=== PATIENT | male | born 1955 | race Two or more races ===

== ENCOUNTER 2016-06-28 09:24 | Emergency (ER) | payer OTHER ==
[~2016-06-28] VITALS: Ht 172.7 cm; Wt 77.1 kg
[2016-06-28] MEDS ORDERED: ALBUTEROL FS 2.5 MG/3 ML VIAL.NEB NEB ONE ×2 (10:00)
[2016-06-28] MEDS ORDERED: IPRATROPIUM NEB FS 0.5 MG/2.5 ML AMPUL.NEB NEB ONE (10:00)
[2016-06-28] MEDS ORDERED: ALBUTEROL FS 2.5 MG/3 ML VIAL.NEB ONE (10:04)
[2016-06-28] MEDS ORDERED: IPRATROPIUM NEB FS 0.5 MG/2.5 ML AMPUL.NEB ONE (10:05)
[2016-06-28 12:02] VITALS: BP 115/82
== END 2016-06-28 12:03 | disposition home or self-care (01) ==
LOC: ER 09:25
DX: J45.901 Unspecified asthma with (acute) exacerbation (principal); J06.9 Acute upper respiratory infection, unspecified; Z88.0 Allergy status to penicillin; Z88.6 Allergy status to analgesic agent; F10.20 Alcohol dependence, uncomplicated
CPT/HCPCS: 71010; 94640; 99283; A4606; Z7610

== ENCOUNTER 2016-07-07 21:58 | Emergency (ER) | payer OTHER ==
[~2016-07-07] VITALS: Ht 182.9 cm; Wt 81.6 kg
[2016-07-07] MEDS ORDERED: ALBUTEROL FS 2.5 MG/0.5 ML VIAL.NEB NEB ONE (22:30)
[2016-07-07] MEDS ORDERED: ALBUTEROL FS 2.5 MG/0.5 ML VIAL.NEB ONE (22:45)
[2016-07-08 00:45] VITALS: BP 106/64
== END 2016-07-08 00:45 | disposition home or self-care (01) ==
LOC: ER 22:00
DX: J45.909 Unspecified asthma, uncomplicated (principal); Z88.0 Allergy status to penicillin
CPT/HCPCS: 71010-TC; A4606; Z7610

== ENCOUNTER 2017-05-27 16:55 | Emergency (ER) | payer OTHER ==
[~2017-05-27] VITALS: Ht 180.3 cm; Wt 83.9 kg
[2017-05-27 17:08] VITALS: BP 124/77
[2017-05-27] MEDS ORDERED: KETOROLAC TROMETHAMINE INJ 30 MG/ML VIAL ONE (17:20)
[2017-05-27] MEDS: KETOROLAC TROMETHAMINE INJ 60 MG/2 ML VIAL IM ONE (17:23)
== END 2017-05-27 17:34 | disposition home or self-care (01) ==
LOC: ER 16:58
DX: S39.012A Strain of muscle, fascia and tendon of lower back, initial encounter (principal); J45.909 Unspecified asthma, uncomplicated; Z88.0 Allergy status to penicillin; Z88.6 Allergy status to analgesic agent; X50.0XXA Overexertion from strenuous movement or load, initial encounter; Y93.89 Activity, other specified; Y92.89 Other specified places as the place of occurrence of the external cause; Y99.0 Civilian activity done for income or pay
CPT/HCPCS: A4606; J1885; Z7610

== ENCOUNTER 2017-07-06 19:47 | Emergency (ER) | payer OTHER ==
[~2017-07-06] VITALS: Ht 185.4 cm; Wt 81.6 kg
--- NOTE | 2017-07-06 20:19 | NUR ---
DR ENGLISH AT BEDSIDE FOR EVAL.
[2017-07-06] MEDS ORDERED: predniSONE 20 MG TABLET PO ONE (20:30)
[2017-07-06] MEDS ORDERED: ALBUTEROL FS 2.5 MG/3 ML VIAL.NEB NEB ONE (20:30)
[2017-07-06] MEDS ORDERED: IPRATROPIUM NEB FS 0.5 MG/2.5 ML AMPUL.NEB NEB ONE (20:30)
--- NOTE | 2017-07-06 20:59 | NUR ---
RT AT BEDSIDE FOR BREATHING TREATMENT.
[2017-07-06] MEDS ORDERED: IPRATROPIUM NEB FS 0.5 MG/2.5 ML AMPUL.NEB ONE (21:00)
[2017-07-06] MEDS ORDERED: ALBUTEROL FS 2.5 MG/3 ML VIAL.NEB ONE (21:00)
[2017-07-06] MEDS ORDERED: predniSONE 20 MG TABLET ONE (21:10)
--- NOTE | 2017-07-06 22:24 | NUR ---
Patient discharged to home in stable condition. Written and verbal after care instructions given. Patient verbalizes understanding of instruction.
[2017-07-06 22:25] VITALS: BP 130/77
== END 2017-07-06 22:25 | disposition home or self-care (01) ==
LOC: ER 19:52
DX: J45.901 Unspecified asthma with (acute) exacerbation (principal); F10.10 Alcohol abuse, uncomplicated; K21.9 Gastro-esophageal reflux disease without esophagitis; Z88.0 Allergy status to penicillin; Z88.6 Allergy status to analgesic agent
CPT/HCPCS: 99285; A4606; J7512; Z7610

== ENCOUNTER 2017-07-11 20:18 | Emergency (ER) | payer OTHER ==
[~2017-07-11] VITALS: Ht 182.9 cm; Wt 81.6 kg
[2017-07-11 20:30] VITALS: BP 148/75
== END 2017-07-11 21:30 | disposition home or self-care (01) ==
LOC: ER 20:25
DX: J20.9 Acute bronchitis, unspecified (principal); J45.901 Unspecified asthma with (acute) exacerbation; K21.9 Gastro-esophageal reflux disease without esophagitis; Z98.890 Other specified postprocedural states; Z88.0 Allergy status to penicillin; Z88.6 Allergy status to analgesic agent
CPT/HCPCS: 99283; A4606; Z7610

== ENCOUNTER 2017-08-14 15:03 | Inpatient (IN) | payer OTHER ==
[~2017-08-14] VITALS: Ht 182.9 cm; Wt 84.8 kg
--- NOTE | 2017-08-14 15:10 | NUR ---
PT CAME IN FOR INTERMITTENT CHEST PAIN X YESTERDAY WITH NAUSEA. SEEN BY MD FOR EVAL. VSS. NAD NOTED. SAEFTY AND COMFORT MEASURES PROVIDED. WILL MONITOR.
[2017-08-14] MEDS ORDERED: ONDANSETRON HCL/PF 4 MG/2 ML VIAL ONE (15:27)
[2017-08-14] MEDS ORDERED: MORPHINE SULFATE INJ 4 MG/ML DISP.SYRIN ONE (15:28)
[2017-08-14] MEDS ORDERED: ASPIRIN EC 81 MG TABLET.DR PO ONE (15:28)
[2017-08-14] MEDS ORDERED: MORPHINE SULFATE INJ 2 MG/ML DISP.SYRIN IV ONE (15:30)
[2017-08-14] MEDS ORDERED: ASPIRIN 81 MG TAB.CHEW PO ONE (15:30)
[2017-08-14] MEDS ORDERED: ONDANSETRON HCL/PF 4 MG/2 ML VIAL IVP ONE (15:30)
--- NOTE | 2017-08-14 15:34 | NUR ---
IV ACCESS STARTED. BLOOD DRAWN FOR LABS. PT MEDICATED ORDERED.
[2017-08-14 15:40] LABS: BASOPHILS # (AUTO) 0.1 /CMM (0.0-0.2); BASOPHILS % (AUTO) 0.9 % (0.0-2.0); EOSINOPHILS # (AUTO) 0.2 /CMM (0.0-0.7); EOSINOPHILS % (AUTO) 2.5 % (0.0-6.0); HEMATOCRIT 43 % (39-51); HEMOGLOBIN 13.8 g/dL (13.5-17.5); LYMPHOCYTES # (AUTO) 1.5 /CMM (0.8-4.8); LYMPHOCYTES % (AUTO) 21.3 % (20.0-44.0); MEAN CORPUSCULAR HEMOGLOBIN 27 PG (26.0-33.0); MEAN CORPUSCULAR HGB CONC 33 g/dl (31.0-36.0); MEAN CORPUSCULAR VOLUME 83 fL (80-96); MONOCYTES # (AUTO) 0.5 /CMM (0.1-1.30); MONOCYTES % (AUTO) 6.9 % (2.0-12.0); NEUTROPHILS # (AUTO) 4.9 /CMM (1.8-8.9); NEUTROPHILS % (AUTO) 68.4 % (43.0-81.0); PLATELET COUNT (AUTO) 198 /CMM (150-450); WHITE BLOOD COUNT (AUTO) 7.2 K/uL (4.3-11.0)
[2017-08-14 15:52] LABS: CALCIUM, SERUM 8.7 mg/dL (8.5-10.1); CARBON DIOXIDE 27 mmol/L (21-32); CHLORIDE 106 mmol/L (98-107); CREATININE 0.9 mg/dL (0.6-1.3); GLUCOSE 99 mg/dL (74-106); POTASSIUM 4.3 mmol/L (3.5-5.1); SODIUM SERUM 140 mmol/L (136-145); UREA NITROGEN, BLOOD 12 mg/dL (7-18)
[2017-08-14 15:54] LABS: INR 0.96 (0.85-1.15)
[2017-08-14 15:58] LABS: ALANINE AMINOTRANSFERASE 40 U/L (12-78); ALBUMIN 3.9 g/dL (3.4-5.0); ALKALINE PHOSPHATASE 80 U/L (46-116); ASPARTATE AMINOTRANSFERASE 27 U/L (15-37); BILIRUBIN,DIRECT 0.1 mg/dL (0.0-0.2); BILIRUBIN,TOTAL 0.4 mg/dL (0.2-1.0); TOTAL PROTEIN, SERUM 7.5 g/dL (6.4-8.2); TROPONIN I < 0.017 ng/mL (0.00-0.056)
--- NOTE | 2017-08-14 16:50 | NUR ---
CALLED [employer] PRINCIPAL EMBEDDED SOFTWARE ENGINEER WAS PAGED.
[2017-08-14] MEDS ORDERED: SIMV40TA5 PO (16:58)
--- NOTE | 2017-08-14 18:10 | NUR ---
REPORT GIVEN TO HAROLDO VILLALBA FOR TELE 323.
--- NOTE | 2017-08-14 19:20 | NUR ---
TELE/RN NOTES RECEIVED PT. LYING DOWN IN BED. AWAKE, ALERT AND ORIENTED X4. BREATHING EVEN AND UNLABORED ON ROOM AIR. NO SOB, RESPIRATORY DISTRESS OR COMPLAINTS OF PAIN NOTED AT THIS TIME. NO COMPLAINTS OF CHEST PAIN NOTED AT THIS TIME. PT. WITH EXTERNAL CIVILIAN JAIL OFFICER PRESENT AND INTACT. CURRENT RHYTHM = SINUS RHYTHM HR 60. PT. WITH LEFT AC 18 GAUGE IV SALINE LOCK PRESENT, PATENT AND INTACT. PT. WITH FAMILY MEMBERS PRESENT AT BEDSIDE. AWAITING ADMITTING ORDERS. BED LOCKED AND IN LOWEST POSITION, SIDE RAILS UP X2, CALL LIGHT WITHIN REACH, WILL CONTINUE TO MONITOR.
[2017-08-14 20:00] VITALS: BP 127/71
[2017-08-14] MEDS ORDERED: NITROGLYCERIN 0.4 MG/TAB BOTTLE SL PRN (20:30)
[2017-08-14] MEDS ORDERED: ZOLPIDEM TARTRATE 5 MG TABLET PO PRN (20:30)
[2017-08-14] MEDS ORDERED: MORPHINE SULFATE INJ 2 MG/ML DISP.SYRIN IV PRN (20:30)
[2017-08-14] MEDS ORDERED: ONDANSETRON HCL/PF 4 MG/2 ML VIAL IVP PRN (20:30)
[2017-08-14] MEDS ORDERED: MOME13HF INH (20:44)
[2017-08-14] MEDS ORDERED: ALBU18HF2 INH (20:44)
[2017-08-14] MEDS: PANTOPRAZOLE 40 MG TABLET.DR PO SCH (21:28)
[2017-08-14] MEDS: SIMVASTATIN 40 MG TABLET PO SCH (21:28)
[2017-08-14] MEDS: SUCRALFATE 1 G/10 ML UDC PO SCH (23:53)
[2017-08-15] VITALS: BP 118/62
[2017-08-15 04:00] VITALS: BP 119/71
[2017-08-15] MEDS: SUCRALFATE 1 G/10 ML UDC PO SCH ×3 (06:33→17:19)
--- NOTE | 2017-08-15 06:40 | NUR ---
TELE/RN NOTES PT. IS LYING IN BED RESTING. BREATHING EVEN AND UNLABORED ON ROOM AIR. NO SOB, RESPIRATORY DISTRESS OR COMPLAINTS OF PAIN NOTED AT THIS TIME. NO COMPLAINTS OF CHEST PAIN NOTED AT THIS TIME AND THROUGHOUT SHIFT. PT. WITH EXTERNAL KNIFE CHANGER PRESENT AND INTACT. PT. WITH LEFT AC 18 GAUGE IV SALINE LOCK PRESENT, PATENT AND INTACT. PT. HAS BEEN NPO SINCE MIDNIGHT PENDING CARDIO CONSULT. ALL PT. NEEDS MET. BED LOCKED AND IN LOWEST POSITION, SIDE RAILS UP X2, CALL LIGHT WITHIN REACH, WILL ENDORSE TO DAYSHIFT NURSE FOR CONTINUITY OF CARE.
--- NOTE | 2017-08-15 07:30 | NUR ---
RN Initial Notes Patient alert and oriented x4, chadian speaking, understands a little stateless. Patient kept NPO since midnight. Patient seen by die maker bench stamping Dr. Joyner and received new orders for a lexiscan stress test. Patient denies chest pain at this time. Needs attended and met, call light within reach, will continue to monitor.
[2017-08-15 07:53] LABS: CHOLESTEROL 127 mg/dL (<200); HDL CHOLESTEROL 38 mg/dL (40-60); LDL 78 mg/dL (0-99); TRIGLYCERIDES 100 mg/dL (30-150)
[2017-08-15 08:00] VITALS: BP 97/62
[2017-08-15] MEDS: ASPIRIN EC 81 MG TABLET.DR PO SCH (08:35)
[2017-08-15] MEDS: PANTOPRAZOLE 40 MG TABLET.DR PO SCH (08:36)
[2017-08-15 16:00] VITALS: BP 96/68
--- NOTE | 2017-08-15 19:01 | NUR ---
RN Closing Notes Patient A/Ox4, denies further chest pain throughout the shift, breathing even and unlabored, PIV on LAC patent and flushes well. Patient completed Lexiscan nuclear stress test and Echocardiogram. Dr. Joyner aware of results. Patient assisted with adls, but mostly independent. Family at bedside, call light within reach, will endorse to night nurse for davidson.
--- NOTE | 2017-08-15 19:25 | NUR ---
MS RN NOTES ON BED A/O X4,BREATHING REGULAR,DENIES CHEST PAIN.SALINE LOCK LEFT AC INTACT AND PATENT.VISITOR AT BEDSIDE.CALL LIGHT IN REACH,NEEDS ANTICIPATED.
[2017-08-15 19:58] VITALS: BP 96/57
[2017-08-15 20:11] VITALS: BP 96/57
[2017-08-15] MEDS: SIMVASTATIN 40 MG TABLET PO SCH (21:09)
--- NOTE | 2017-08-15 22:00 | NUR ---
MS RN NOTES HAYLEE TERAN CALLED SAYING ALL TEST WAS NEGATIVE,ASK IF PATIENT WANTS TO GO HOME,PATIENT PREFERS TO GO HOME IN THE MORNING.
[2017-08-16] MEDS: SUCRALFATE 1 G/10 ML UDC PO SCH ×3 (00:24→11:53)
[2017-08-16 02:20] LABS: APPEARANCE,URINE TURBID (CLEAR); BILIRUBIN,URINE NEGATIVE (NEGATIVE); BLOOD, URINE NEGATIVE Ery/uL (NEGATIVE); COLOR,URINE YELLOW (YELLOW); KETONES,URINE TRACE (NEGATIVE); LEUKOCYTE ESTERASE ,URINE NEGATIVE (NEGATIVE); NITRITE, URINE NEGATIVE (NEGATIVE); PH,URINE 5.5 (5.0-8.0); PROTEIN,URINE NEGATIVE (NEGATIVE); UGLUCOSE NEGATIVE (NEGATIVE); UROBILINOGEN,URINE 0.2 EU/dL (0.2)
[2017-08-16 02:28] LABS: BACTERIA,URINE Few /HPF (None Seen); RBC,URINE 0-2 /HPF (0-2); SQUAMOUS EPITHELIAL CELL,UR None Seen /HPF (None Seen); URINE AMORPHOUS URATE Many /HPF (None Seen); WBC,URINE NONE SEEN /HPF (0-3)
--- NOTE | 2017-08-16 06:12 | NUR ---
MS RN NOTES NO SIGNIFICANT CHANGE IN STATUS.DENIES CHEST PAIN.SLEPT WELL.POSSIBLE D/C TO HOME TODAY.CLAIMED HE CAN DRIVE HIS OWN CAR GOING BACK HOME.WILL ENDORSE TO DAY NURSE FOR SAMANTHA.
[2017-08-16 08:00] VITALS: BP 98/50
[2017-08-16] MEDS ORDERED: REGADENOSON 0.4 MG/5 ML DISP.SYRIN IVP ONE (08:00)
[2017-08-16] MEDS: PANTOPRAZOLE 40 MG TABLET.DR PO SCH (08:07)
[2017-08-16] MEDS: ASPIRIN EC 81 MG TABLET.DR PO SCH (08:07)
[2017-08-16] MEDS ORDERED: PANT40TA2 PO (13:45)
[2017-08-16] MEDS ORDERED: ASPI-1152 PO (13:45)
--- NOTE | 2017-08-16 15:05 | NUR ---
M/S RN - Discharge Pt feeling better, denies chest pain, not in any form of distress, discharged to home in stable condition. Reviewed discharge instructions with patient and he verbalized full understanding of all teachings including medication management and f/u appt with his PMD in 1 week and avoid high acidity foods. Written prescription given to pt and work note. All belongings with pt and he denies any missing items. Heplock removed on the LAC with catheter tip intact, no redness and no swelling noted at the site. Skin is intact, pt refused photo to be taken. Discharge papers signed and copy was given per protocol. Accompanied to the lobby and transported by private car by .
== END 2017-08-16 15:00 | disposition home or self-care (01) | DRG 243 ==
LOC: ER 15:07 → TELE 17:38 → MED 08-15 09:13
PROVIDERS: ADMIT Nurse Practitioner Acute Care; ATTEND Nurse Practitioner Acute Care
DX: K21.9 Gastro-esophageal reflux disease without esophagitis (principal); E78.5 Hyperlipidemia, unspecified; J45.909 Unspecified asthma, uncomplicated; K40.90 Unilateral inguinal hernia, without obstruction or gangrene, not specified as recurrent
CPT/HCPCS: 36415; 71045-TC; 80048-TC; 80061-TC; 80076-TC; 80305; 81000-TC; 84484-TC; 85025-TC; 85730-TC; 87081-TC; 93307-TC; A4606; A9502; J2785; Z7610

== ENCOUNTER 2018-08-19 18:29 | Emergency (ER) | payer OTHER ==
[~2018-08-19] VITALS: Ht 185.4 cm; Wt 81.6 kg
[2018-08-19 18:29] VITALS: BP 146/80
[~2018-08-19 18:29] MED LIST: ALBU18HF2 INH; ASPI-1152 PO; MOME13HF INH; PANT40TA2 PO; SIMV40TA5 PO
[2018-08-19] MEDS ORDERED: ACETAMINOPHEN ES 500 MG TABLET PO ONE (19:30)
[2018-08-19] MEDS ORDERED: ACETAMINOPHEN ES 500 MG TABLET ONE (19:33)
== END 2018-08-19 21:25 | disposition home or self-care (01) ==
LOC: ER 18:37
DX: J40 Bronchitis, not specified as acute or chronic (principal); K21.9 Gastro-esophageal reflux disease without esophagitis; E78.5 Hyperlipidemia, unspecified; Z98.890 Other specified postprocedural states; Z88.0 Allergy status to penicillin; Z88.6 Allergy status to analgesic agent; Z79.82 Long term (current) use of aspirin; Z79.899 Other long term (current) drug therapy
CPT/HCPCS: 71045; 99283; A4606

== ENCOUNTER 2019-08-09 13:59 | Emergency (ER) | payer OTHER ==
[~2019-08-09] VITALS: Ht 182.9 cm; Wt 84.8 kg
[~2019-08-09 13:59] MED LIST changes: +SIMV-49 PO; -SIMV40TA5 PO
[2019-08-09 15:30] VITALS: BP 114/70
[2019-08-09] MEDS ORDERED: KETOROLAC TROMETHAMINE INJ 30 MG/ML VIAL ONE (15:59)
[2019-08-09] MEDS ORDERED: METHOCARBAMOL (750MG) 750 MG TABLET PO SCH (16:00)
[2019-08-09] MEDS ORDERED: KETOROLAC TROMETHAMINE INJ 60 MG/2 ML VIAL IM ONE (16:00)
[2019-08-09] MEDS ORDERED: METHOCARBAMOL (500MG) 500 MG TABLET ONE (16:00)
== END 2019-08-09 17:14 | disposition home or self-care (01) ==
LOC: ER 14:06
DX: M54.5 Low back pain (principal); J45.909 Unspecified asthma, uncomplicated; K21.9 Gastro-esophageal reflux disease without esophagitis; F10.10 Alcohol abuse, uncomplicated; Y90.9 Presence of alcohol in blood, level not specified; Z98.890 Other specified postprocedural states; Z88.0 Allergy status to penicillin; Z88.6 Allergy status to analgesic agent; Z79.82 Long term (current) use of aspirin; Z79.899 Other long term (current) drug therapy
CPT/HCPCS: 96372; 99283; J1885

== ENCOUNTER 2020-09-09 20:18 | Inpatient (IN) | payer BC, MEDICAID ==
[~2020-09-09] VITALS: Ht 188 cm; Wt 68.5 kg
[~2020-09-09 20:18] MED LIST changes: -ASPI-1152 PO; +ASPI-1420 PO
--- NOTE | 2020-09-09 20:18 | NUR ---
PT BIBSELF C/O CHEST AND LEFT SHOULDER PAIN S/P FALL LAST SUNDAY. PT AAOX4 BREATHING EVENLY AND UNLABORED. PT DENIES KO. PT SKIN WARM, DRY, AND INTACT. PT ATTACHED TO RETAIL SHIFT MANAGER AND POX. EMT AT BEDSIDE FOR EKG. PT GIVEN BLANKET AND CALL LIGHT WITHIN REACH. WILL CONTINUE TO MONITOR.
[2020-09-09] MEDS ORDERED: KETOROLAC TROMETHAMINE 15 MG/ML VIAL ONE (20:54)
[2020-09-09] MEDS ORDERED: KETOROLAC TROMETHAMINE INJ 30 MG/ML VIAL IV ONE (21:00)
[2020-09-09 21:05] LABS: BASOPHILS % (AUTO) 0.7 % (0.0-2.0); EOSINOPHILS % (AUTO) 3.3 % (0.0-6.0); HEMATOCRIT 42 % (39-51); HEMOGLOBIN 13.9 g/dL (13.5-17.5); LYMPHOCYTES # (AUTO) 1.8 /CMM (0.8-4.8); LYMPHOCYTES % (AUTO) 25.2 % (20.0-44.0); MEAN CORPUSCULAR HGB CONC 33 g/dl (31.0-36.0); MEAN CORPUSCULAR VOLUME 83 fL (80-96); MONOCYTES # (AUTO) 0.5 /CMM (0.1-1.30); MONOCYTES % (AUTO) 7.5 % (2.0-12.0); NEUTROPHILS # (AUTO) 4.4 /CMM (1.8-8.9); NEUTROPHILS % (AUTO) 63.3 % (43.0-81.0); PLATELET COUNT (AUTO) 171 /CMM (150-450); RED BLOOD CELL COUNT(AUTO) 5.08 MIL/uL (4.5-6.0)
--- NOTE | 2020-09-09 21:05 | NUR ---
XRAY AT BEDSIDE
[2020-09-09 21:12] LABS: CARBON DIOXIDE 27 mmol/L (21-32); CHLORIDE 106 mmol/L (98-107); CREATININE 0.9 mg/dL (0.6-1.3); GLUCOSE 101 mg/dL (74-106); POTASSIUM 3.9 mmol/L (3.5-5.1); SODIUM SERUM 140 mmol/L (136-145); UREA NITROGEN, BLOOD 12 mg/dL (7-18)
[2020-09-09 21:18] LABS: ALANINE AMINOTRANSFERASE 31 U/L (12-78); ALKALINE PHOSPHATASE 81 U/L (46-116); ASPARTATE AMINOTRANSFERASE 17 U/L (15-37); BILIRUBIN,DIRECT 0.1 mg/dL (0.0-0.2); BILIRUBIN,TOTAL 0.4 mg/dL (0.2-1.0); TOTAL PROTEIN, SERUM 7.6 g/dL (6.4-8.2)
[2020-09-09] MEDS ORDERED: FLUT1BLS IH (22:40)
--- NOTE | 2020-09-09 22:45 | NUR ---
DAUGHTER, BRISEYDA [phone]
[2020-09-09] MEDS ORDERED: MORPHINE SULFATE INJ 2 MG/ML DISP.SYRIN IV PRN (23:00)
[2020-09-09] MEDS ORDERED: HYDROCODONE/APAP 5/325MG TABLET PO PRN (23:00)
[2020-09-09] MEDS ORDERED: ONDANSETRON HCL/PF 4 MG/2 ML VIAL IVP PRN (23:00)
[2020-09-09] MEDS ORDERED: IBUPROFEN 600 MG TABLET PO PRN (23:00)
[2020-09-09] MEDS ORDERED: ACETAMINOPHEN 325 MG TABLET PO PRN (23:00)
[2020-09-09] MEDS ORDERED: TEMAZEPAM 15 MG CAPSULE PO PRN (23:00)
[2020-09-09] MEDS ORDERED: Z GUARD REMEDY 2 OZ OINT TP PRN (23:00)
[2020-09-09] MEDS ORDERED: MAGNESIUM HYDROXIDE 30 ML UDC PO PRN (23:00)
[2020-09-09] MEDS ORDERED: MAG HYDROX/AL HYDROX/SIMETH 30 ML UDC PO PRN (23:00)
--- NOTE | 2020-09-09 23:26 | NUR ---
Call from lab. Rapid covid negative.
--- NOTE | 2020-09-09 23:40 | NUR ---
ATTEMPTED TO GIVE REPORT. RN WILL CALL BACK
--- NOTE | 2020-09-09 23:48 | NUR ---
GAVE REPORT TO ORLY ANGELO FOR SAMANTHA
[2020-09-10] VITALS: BP 139/77
--- NOTE | 2020-09-10 | NUR ---
TELE 1 ADVANCE AGENT NOTES RECEIVED ADMIT FROM ER PER JUAREZ THIS 64 YO MALE,,UNDERSTAND AND SPEAK MALTESE,ALERT,ORIENTED X4,AMBULATORY WITH STEADY GAIT,NO SKIN ISSUES.SALINE LOC RIGHT AC INTACT AND PATENT.CHIEF COM[PLAINTS OF CHEST AND SHOULDER PAIN SINCE SUNDAY.DENIES FALLING ON THE FLOOR.VITAL SIGNS WITH IN NORMAL LIMITS,O2 SAT 100% ON ROOM AIR.WITH KNOW HISTORY OF ASTHMA SINCE CHILDHOOD.TAKING ALBUTEROL INHALATION DAY AND NIGHT.NO SOB UPON ARRIVAL ON THE UNIT,CHEST PAIN DULL AND MILD 2/10 ON PAIN SCALE.ORIENTED TO ROOM SET UP.BED ON LOWEST POSITION AND LOCKED.FEELING HUNGRY,SANDWICH WITH CRANBERRY JUICE PROVIDED PER PATIENT REQUEST.CALL LIGHT IN REACH,NEEDS ANTICIPATED.
--- NOTE | 2020-09-10 00:30 | NUR ---
TELE1 RN NOTES SR-64 ON TELE MONITOR
[2020-09-10 04:00] VITALS: BP 102/65
--- NOTE | 2020-09-10 06:27 | NUR ---
MEDICAL SUPPLY TECHNICIAN NOTES CHEST PAIN IMPROVED,LABS TODAY AND ECHO ORDERED.NO DISTRESS.VITAL SIGNS STABLE.
[2020-09-10 07:00] LABS: BASOPHILS % (AUTO) 0.7 % (0.0-2.0); EOSINOPHILS % (AUTO) 3.7 % (0.0-6.0); HEMATOCRIT 41 % (39-51); HEMOGLOBIN 13.6 g/dL (13.5-17.5); LYMPHOCYTES # (AUTO) 1.5 /CMM (0.8-4.8); LYMPHOCYTES % (AUTO) 26.7 % (20.0-44.0); MEAN CORPUSCULAR HGB CONC 33 g/dl (31.0-36.0); MEAN CORPUSCULAR VOLUME 83 fL (80-96); MONOCYTES # (AUTO) 0.5 /CMM (0.1-1.30); MONOCYTES % (AUTO) 8.4 % (2.0-12.0); NEUTROPHILS # (AUTO) 3.4 /CMM (1.8-8.9); NEUTROPHILS % (AUTO) 60.5 % (43.0-81.0); PLATELET COUNT (AUTO) 160 /CMM (150-450); RED BLOOD CELL COUNT(AUTO) 4.98 MIL/uL (4.5-6.0); WHITE BLOOD COUNT (AUTO) 5.7 K/uL (4.3-11.0)
[2020-09-10 07:22] LABS: CALCIUM, SERUM 8.7 mg/dL (8.5-10.1); CARBON DIOXIDE 26 mmol/L (21-32); CHLORIDE 108 mmol/L (98-107); CREATININE 0.8 mg/dL (0.6-1.3); GLUCOSE 96 mg/dL (74-106); MAGNESIUM 2.3 mg/dL (1.8-2.4); PHOSPHORUS 4.6 mg/dL (2.5-4.9); POTASSIUM 3.7 mmol/L (3.5-5.1); SODIUM SERUM 141 mmol/L (136-145); UREA NITROGEN, BLOOD 12 mg/dL (7-18)
[2020-09-10] MEDS ORDERED: PANTOPRAZOLE 40 MG TABLET.DR PO SCH (07:30)
--- NOTE | 2020-09-10 07:30 | NUR ---
Pocket Flap Creasing Machine Operator opening notes Patient is alert and oriented, breathing even and unlabored.No c/o sob or chest pain. 02 saturation of 985 on room air. Patient noted with right ac 20 gauze saline lock. Safety and fall precaution teaching done. Will continue to monitor. Call light with in reach.
[2020-09-10 07:47] LABS: CHOLESTEROL 182 mg/dL (<200); HDL CHOLESTEROL 37 mg/dL (40-60); LDL 127 mg/dL (0-99); THYROID STIMULATING HORMONE 2.485 uIU/mL (0.358-3.74); TRIGLYCERIDES 96 mg/dL (30-150)
[2020-09-10 08:00] VITALS: BP 108/71
[2020-09-10] MEDS ORDERED: ENOXAPARIN SODIUM 40 MG/0.4 ML DISP.SYRIN SQ SCH (09:00)
[2020-09-10] MEDS ORDERED: ASPIRIN 81 MG TAB.CHEW PO SCH (09:00)
[2020-09-10] MEDS ORDERED: ALBUTEROL FS 2.5 MG/3 ML VIAL.NEB IH PRN (09:30)
[2020-09-10] MEDS ORDERED: FLUTICASONE/VILANTEROL 1 EACH BLST.W.DEV IH SCH (10:00)
[2020-09-10 12:00] VITALS: BP 100/65
[2020-09-10 15:15] VITALS: BP 106/78
--- NOTE | 2020-09-10 15:53 | NUR ---
Patient discharged to home in stable condition. No c/o chest pain. Breathing even and unlabored. No s/s of respiratory distress. Patient teaching done regardign safety and fal precuations. Educated regarding coid mrsa smoking, influenza and chest pain. Educated regarding follow up with pcp. No skin breakdown noted. Patient left the facility with .
[2020-09-10] MEDS ORDERED: SIMVASTATIN 40 MG TABLET PO SCH (22:00)
== END 2020-09-10 15:40 | disposition home or self-care (01) | DRG 203 ==
LOC: ER 20:20 → TELE1 23:36
PROVIDERS: ADMIT Nurse Practitioner Acute Care; ATTEND Internal Medicine
DX: M94.0 Chondrocostal junction syndrome [Tietze] (principal); Z20.822 Contact with and (suspected) exposure to COVID-19; K21.9 Gastro-esophageal reflux disease without esophagitis; J45.909 Unspecified asthma, uncomplicated; E78.5 Hyperlipidemia, unspecified; Z98.890 Other specified postprocedural states; Z88.6 Allergy status to analgesic agent; Z88.0 Allergy status to penicillin; Z79.51 Long term (current) use of inhaled steroids; Z79.899 Other long term (current) drug therapy; N40.0 Benign prostatic hyperplasia without lower urinary tract symptoms; I24.9 Acute ischemic heart disease, unspecified
CPT/HCPCS: 36415; 71100-TC; 80048-TC; 80061-TC; 80076-TC; 83735-TC; 84100-TC; 84443-TC; 84484-TC; 85025-TC; 87081-TC; 93307-TC; C9803; G0378; J1650; J1885

== ENCOUNTER 2021-08-22 13:57 | Emergency (ER) | payer MEDICAID ==
[~2021-08-22] VITALS: Ht 182.9 cm; Wt 81.6 kg
[~2021-08-22 13:57] MED LIST changes: -ASPI-1420 PO; +FLUT1BLS IH; -MOME13HF INH; -PANT40TA2 PO; -SIMV-49 PO
[2021-08-22 14:58] LABS: BASOPHILS % (AUTO) 0.5 % (0.0-2.0); EOSINOPHILS % (AUTO) 3.2 % (0.0-6.0); HEMATOCRIT 40 % (39-51); HEMOGLOBIN 13.6 g/dL (13.5-17.5); LYMPHOCYTES # (AUTO) 1.4 K/uL (0.8-4.8); LYMPHOCYTES % (AUTO) 19.3 % (20.0-44.0); MEAN CORPUSCULAR HGB CONC 34 g/dl (31.0-36.0); MEAN CORPUSCULAR VOLUME 83 fL (80-96); MONOCYTES # (AUTO) 0.6 K/uL (0.1-1.30); MONOCYTES % (AUTO) 7.4 % (2.0-12.0); NEUTROPHILS # (AUTO) 5.2 K/uL (1.8-8.9); NEUTROPHILS % (AUTO) 69.6 % (43.0-81.0); PLATELET COUNT (AUTO) 171 K/uL (150-450); RED BLOOD CELL COUNT(AUTO) 4.86 MIL/uL (4.5-6.0); WHITE BLOOD COUNT (AUTO) 7.5 K/uL (4.3-11.0)
[2021-08-22 15:08] LABS: CALCIUM, SERUM 8.9 mg/dL (8.5-10.1); CREATININE 0.9 mg/dL (0.6-1.3); POTASSIUM 4.6 mmol/L (3.5-5.1)
[2021-08-22 15:15] LABS: ALBUMIN 3.8 g/dL (3.4-5.0); BILIRUBIN,TOTAL 0.4 mg/dL (0.2-1.0); TOTAL PROTEIN, SERUM 7.2 g/dL (6.4-8.2)
[2021-08-22 17:14] VITALS: BP 118/72
== END 2021-08-22 17:14 | disposition home or self-care (01) ==
LOC: ER 14:00
DX: R60.0 Localized edema (principal); J45.909 Unspecified asthma, uncomplicated; K21.9 Gastro-esophageal reflux disease without esophagitis; K40.20 Bilateral inguinal hernia, without obstruction or gangrene, not specified as recurrent; Z88.0 Allergy status to penicillin; Z88.6 Allergy status to analgesic agent; Z79.51 Long term (current) use of inhaled steroids
CPT/HCPCS: 36415; 71045-TC; 80053-TC; 85025-TC; 93970-TC

== ENCOUNTER 2022-10-08 21:09 | Inpatient (IN) | payer BC, OTHER ==
[~2022-10-08] VITALS: Ht 175.3 cm; Wt 83.5 kg
--- NOTE | 2022-10-08 21:16 | NUR ---
CODE STROKE CALLED.
--- NOTE | 2022-10-08 21:17 | NUR ---
PT TO CT VIA JUAREZ
[2022-10-08] MEDS ORDERED: IV NS 0.9% 250 ML IV ONE (21:19)
[2022-10-08] MEDS ORDERED: IOHEXOL-350 100 ML VIAL IV ONE (21:19)
--- NOTE | 2022-10-08 21:25 | NUR ---
IV RAC #18G S/L & IV LAC #18G S/L ESTABLISHED; BLOOD COLLECTED AND SENT TO LAB
--- NOTE | 2022-10-08 21:28 | NUR ---
CTA BRAIN & CAROTID W CONTRAST DONE
--- NOTE | 2022-10-08 21:32 | NUR ---
CXR DONE AT RADIOLOGY ROOM
--- NOTE | 2022-10-08 21:34 | NUR ---
PT RETURNING BACK TO ER BED [address]
[2022-10-08 21:37] LABS: BASOPHILS % (AUTO) 0.6 % (0.0-2.0); EOSINOPHILS % (AUTO) 2.9 % (0.0-6.0); HEMATOCRIT 41 % (39-51); HEMOGLOBIN 13.2 g/dL (13.5-17.5); LYMPHOCYTES % (AUTO) 33.2 % (20.0-44.0); MEAN CORPUSCULAR HGB CONC 32 g/dl (31.0-36.0); MEAN CORPUSCULAR VOLUME 84 fL (80-96); MONOCYTES # (AUTO) 0.5 K/uL (0.1-1.30); MONOCYTES % (AUTO) 8.9 % (2.0-12.0); NEUTROPHILS # (AUTO) 3.3 K/uL (1.8-8.9); NEUTROPHILS % (AUTO) 54.4 % (43.0-81.0); PLATELET COUNT (AUTO) 167 K/uL (150-450)
--- NOTE | 2022-10-08 21:39 | NUR ---
ARGELIA LOUIS 117; DR STEPHENSON AWARE
[2022-10-08 21:46] LABS: CALCIUM, SERUM 8.4 mg/dL (8.5-10.1); CARBON DIOXIDE 25 mmol/L (21-32); CHLORIDE 107 mmol/L (98-107); GLUCOSE 95 mg/dL (74-106); POTASSIUM 3.4 mmol/L (3.5-5.1); SODIUM SERUM 142 mmol/L (136-145); UREA NITROGEN, BLOOD 8 mg/dL (7-18)
--- NOTE | 2022-10-08 21:47 | NUR ---
PT ON TELE NEURO CALL WITH DR FANNY BOWMAN NEUROLOGIST. BRISEYDA DAUGHTER AT BEDSIDE. LWT AT 1500; LEFT FACIAL WEAKNESS AND NUMBNESS
--- NOTE | 2022-10-08 21:48 | NUR ---
DR STEPHENSON ON PHONE CALL WITH DR. BOWMAN NEUROLOGIST
--- NOTE | 2022-10-08 22:55 | NUR ---
Pt remain alert, responsive with [facility] off 1 due to Sensory. Pt care continue.
[2022-10-09] MEDS ORDERED: TEMAZEPAM 15 MG CAPSULE PO PRN
[2022-10-09] MEDS ORDERED: HYDROCODONE/APAP 5/325MG TABLET PO PRN
[2022-10-09] MEDS ORDERED: ACETAMINOPHEN 325 MG TABLET PO PRN
--- NOTE | 2022-10-09 | NUR ---
Pt care continue as reoport is given to the Tele receiving RN as Pt is been admitted to Tele unit with Diagnose off CVA , Room 116-1.
[2022-10-09] MEDS ORDERED: SIMVASTATIN 20 MG TABLET ONE (00:16)
[2022-10-09] MEDS ORDERED: ENOXAPARIN SODIUM 40 MG/0.4 ML DISP.SYRIN SQ SCH ×2 (00:18)
--- NOTE | 2022-10-09 00:18 | NUR ---
Zocor 40mg PO and Lovenox 40mg SUBQ given as ordered. Pt care continue.
--- NOTE | 2022-10-09 00:25 | NUR ---
Pt is off the unity to 1st Floor Room 116-1 as he is been admitted. Pt care continue.
[2022-10-09] MEDS ORDERED: MOME13HF INH (01:15)
--- NOTE | 2022-10-09 02:51 | NUR ---
RN NOTE PT BEING ADMITTED FROM ER VIA JUAREZ S/P CODE STROKE,PTIS AWAKE. ALERT FOLLOW COMMANDS. BUYER ASSISTANT SHOWING NSR.IV RT AND LT HAND SALINE LOCK.HOB ELEVATED. NO FACIAL DROOPS.ALL EXTREMITIES STRONG.WILL CONTINUE TO MONITOR VITALS.
[2022-10-09 04:00] VITALS: BP 106/62
--- NOTE | 2022-10-09 05:04 | NUR ---
RN NOTE. AM CARE GIVEN.REMAINING SAME PT NEURO STATUS.VITALS STABLE. WILL CONTINUE TO MONITOR VITALS.
[2022-10-09] MEDS ORDERED: ALBUTEROL FS 2.5 MG/3 ML VIAL.NEB IH PRN ×2 (06:30)
[2022-10-09] MEDS ORDERED: ALBUTEROL FS 2.5 MG/3 ML VIAL.NEB IH SCH (06:30)
[2022-10-09 07:27] LABS: BASOPHILS % (AUTO) 0.9 % (0.0-2.0); EOSINOPHILS % (AUTO) 2.5 % (0.0-6.0); HEMATOCRIT 37 % (39-51); HEMOGLOBIN 12.3 g/dL (13.5-17.5); LYMPHOCYTES # (AUTO) 1.7 K/uL (0.8-4.8); LYMPHOCYTES % (AUTO) 34.4 % (20.0-44.0); MEAN CORPUSCULAR HGB CONC 33 g/dl (31.0-36.0); MEAN CORPUSCULAR VOLUME 83 fL (80-96); MONOCYTES # (AUTO) 0.4 K/uL (0.1-1.30); MONOCYTES % (AUTO) 7.9 % (2.0-12.0); NEUTROPHILS # (AUTO) 2.8 K/uL (1.8-8.9); NEUTROPHILS % (AUTO) 54.3 % (43.0-81.0); PLATELET COUNT (AUTO) 140 K/uL (150-450); WHITE BLOOD COUNT (AUTO) 5.1 K/uL (4.3-11.0)
[2022-10-09] MEDS ORDERED: PANTOPRAZOLE 40 MG TABLET.DR PO SCH (07:30)
--- NOTE | 2022-10-09 07:30 | NUR ---
FOREIGN LEGAL CONSULTANT AM NOTES RECIEVED PATIENT IN BED, AAO X 3, NO FACIAL DROOP, ON ROOM AIR, O2 SAT >95%, NO SOB, NO DISTRESS, RESPIRATION UNLABORED. SR HR 80 ON MONITOR. DENIES ANY CHEST PAIN OR DISCOMFORT. IV ACCESS TO RAC 18G AND LAC 18 G, BOTH FLUSHES WELL, BOTH SITES CLEAR. NO SKIN ISSUES. BRP, AMB WITH ASSIST. POC DISCUSSED, VERBALIZED UNDERSTANDING. SAFETY MEASURES IN PLACE, HOB UP X 2, BED LOW LOCKED. CALL LIGHTWITHIN REACH. WILL CONT TO MONITOR.
[2022-10-09 07:38] LABS: CALCIUM, SERUM 8.3 mg/dL (8.5-10.1); CREATININE 0.8 mg/dL (0.6-1.3); POTASSIUM 3.4 mmol/L (3.5-5.1)
[2022-10-09 08:00] VITALS: BP 107/77
[2022-10-09] MEDS ORDERED: ASPIRIN EC 325 MG TABLET.DR PO SCH (09:00)
[2022-10-09] MEDS: BUDESONIDE RESPULE INH 0.5 MG/2 ML AMPUL.NEB IH SCH ×2 (09:00→15:43)
--- NOTE | 2022-10-09 09:30 | NUR ---
RN NOTES DUE MEDS GIVEN
--- NOTE | 2022-10-09 10:14 | NUR ---
RN NOTES PATIENT HAS NO ADMIT ORDERS, DR. CABELLO NOTIFIED AND AWARE. PATIENT WAS ADMITTED LAST NIGHT.
[2022-10-09] MEDS ORDERED: POTASSIUM CHLORIDE 20 MEQ TAB.PRT.SR PO SCH (11:30)
[2022-10-09 12:00] VITALS: BP 111/68
[2022-10-09] MEDS: ALBUTEROL FS 2.5 MG/3 ML VIAL.NEB NEB SCH ×2 (13:30→19:30)
--- NOTE | 2022-10-09 15:12 | NUR ---
SS CONSULT: SS Consult requested for code stroke. The pt. is a 67-year-old male who was admitted to [facility] due to TIA. SW met with pt. bedside. The pt. was alert & oriented x 4 and makes good eye contact. The pt. appears well-groomed. SW conducted interview in Iranian. Pt. denies SI/HI and denies hallucinations. The pt. has euthymic mood & affect. Pt. stated that he lives at home [[address] [facility] [address]] with his , Radha Eli tel: [phone] and would like to return there once ready for DC. Pt. states his daughter brought him to the hospital after he began having worsening symptoms of left sided headaches and weakness. SW conducted post stroke depression scale and pt. scored a 1, and no psych consult is needed. SW also provided empowerment after stroke educational material and pt. accepted it. Pt. denies drug or alcohol use. Pt. denies any Hx. of mental illness or medication. Pt. stated that his support system includes his and family. DC Plan: Pt. stated she would like to return to home [address] [facility] [address]] with his family. SW provided stroke empowerment resources. Pt. accepted them. Pt. scored a 1 on the post stroke depression scale no psych consult needed.
[2022-10-09 16:00] VITALS: BP_SYST 112; BP_SYST 118; BP_DIAS 76; BP_DIAS 80
--- NOTE | 2022-10-09 16:34 | NUR ---
RT offered inhalation breathing txs patient says he uses all his inhalers by bedside and prefers those, duplicate to be given at the same time
--- NOTE | 2022-10-09 18:38 | NUR ---
ENROLLER CLOSING NOTES PATIENT IN BED, RESTING, AAO X 3, NO FACIAL DROOP, ON ROOM AIR, O2 SAT >95%, NO SOB, NO DISTRESS, RESPIRATION UNLABORED. SR HR 80 ON MONITOR. DENIES ANY CHEST PAIN OR DISCOMFORT. IV ACCESS TO RAC 18G AND LAC 18 G, BOTH FLUSHES WELL, BOTH SITES CLEAR. NO SKIN ISSUES. BRP, AMB WITH ASSIST. 2GM SODIUM DIET. SAFETY MEASURES IN PLACE, HOB UP X 2, BED LOW LOCKED. CALL LIGHT WITHIN REACH. ALL NEEDS MET. PM CARE DONE EARLIER. WILL ENDORSE TO NEXT SHIFT FOR SAMANTHA.
--- NOTE | 2022-10-09 19:54 | NUR ---
RT NOTE PT REFUSING BREATHING TX PROVIDED BY HOSPITAL. PT CLAIMS HE HAS OWN INHALER AND WOULD USE THAT INSTEAD. RN MIC @ BEDSIDE AND IS AWARE. NO RESPIRATORY DISTRESS NOTED. PT SPO2 @ 98%, HR 70, RR 18.
[2022-10-09 20:00] VITALS: BP 107/61
[2022-10-09] MEDS ORDERED: SIMVASTATIN 20 MG TABLET PO SCH (22:00)
[2022-10-09] MEDS ORDERED: SIMVASTATIN 40 MG TABLET PO SCH (22:00)
--- NOTE | 2022-10-10 01:00 | NUR ---
RN NOTES; PATIENT TALKED TO THE CHARGE NURSE BUZZ,THAT HE WANTS TO GO HOME BECAUSE THE CLEANING LADY WAS SPRAYING CLOROX IN BED B 2X,HE SAID, HE HAS ASTHMA AND HE CANNOT SLEEP WITH IT,WE OFFERED HIM TO TAKE OUT THE BED OR MOVE TO ANOTHER RM BUT PT REFUSED HE WANTS TO SIGN AGAINS MEDICAL ADVICE [AMA].PT SAID THE SON ARE COMING TO PICK HIM UP,PT SIGN AMA,BELONGING IS WITH HIM AND SIGN IT,PATIENT AOX4 STABLE, NO SOB NOTED,STEADY GAIT,REMOVE IV SITE AND WRIST BAND,PT WAS ESCORTED UNTIL OUTSIDE THE HOSPITAL,WE BEEN WAITING OUT LIKE 10MINS FOR THE SON TO PICK HIM UP,NEVER SHOW UP YET,UNTIL I TOLD HIM TO CALL HIS SON,HE TALKED TO HIM SAID WAIT FOR 30MINS,PT SAID HIS GONNA START WALKING BECAUSE HE LIVE CLOSED BY.BUZZ [CN] SAID,HE INFORM DOC,[place]alia HARTMANN, AND NURSING CONVENTIONS RESERVATIONIST MAILE ABOUT THE PT WANTS TO SIGN AMA.
[2022-10-10] MEDS ORDERED: ASPIRIN 81 MG TAB.CHEW PO SCH (09:00)
== END 2022-10-10 01:02 | disposition left against medical advice (07) | DRG 103 ==
LOC: ER 21:12 → TELE1 23:16
PROVIDERS: ADMIT Nurse Practitioner Acute Care; ATTEND Nurse Practitioner Acute Care
DX: G43.909 Migraine, unspecified, not intractable, without status migrainosus (principal); E78.5 Hyperlipidemia, unspecified; J45.909 Unspecified asthma, uncomplicated; E66.9 Obesity, unspecified; Z68.29 Body mass index [BMI] 29.0-29.9, adult; K21.9 Gastro-esophageal reflux disease without esophagitis; Z20.822 Contact with and (suspected) exposure to COVID-19
CPT/HCPCS: 36415; 70450-TC; 70496-TC; 70498-TC; 71045-TC; 80048-TC; 80061-TC; 82962-TC; 84443-TC; 84484-TC; 85025-TC; 85652-TC; 85730-TC; 86140-TC; 87081-TC; 92526; 92611-TC; 93307-TC; 97112-TC; 97116-TC; 97530-TC; C9803; G0378; J1650; J7050; Q9967

== ENCOUNTER 2022-11-14 02:52 | Emergency (ER) | payer BC, OTHER ==
[~2022-11-14] VITALS: Ht 182.9 cm; Wt 81.6 kg
[~2022-11-14 02:52] MED LIST changes: +MOME13HF INH
--- NOTE | 2022-11-14 02:58 | NUR ---
BIBS C/O SOB X3-4DAYS. AXO3 PRIMARILY MACEDONIAN SPEAKING. AMBULATORY. SAFETY MEASURES IN PLACE
[2022-11-14] MEDS ORDERED: ALBUTEROL FS 2.5 MG/3 ML VIAL.NEB NEB ONE (03:00)
[2022-11-14] MEDS ORDERED: IPRATROPIUM NEB FS 0.5 MG/2.5 ML AMPUL.NEB NEB ONE (03:00)
--- NOTE | 2022-11-14 03:00 | NUR ---
18G IV STARTED ON LFA. BLOOD COLLECTED AND SENT TO LAB
--- NOTE | 2022-11-14 03:12 | NUR ---
RT AT BEDSIDE FOR BREATHING TREATMENT
[2022-11-14] MEDS ORDERED: IPRATROPIUM NEB FS 0.5 MG/2.5 ML AMPUL.NEB ONE (03:14)
[2022-11-14] MEDS ORDERED: ALBUTEROL FS 2.5 MG/3 ML VIAL.NEB ONE (03:14)
[2022-11-14 03:24] LABS: BASOPHILS % (AUTO) 0.6 % (0.0-2.0); EOSINOPHILS % (AUTO) 3.9 % (0.0-6.0); HEMATOCRIT 40 % (39-51); LYMPHOCYTES # (AUTO) 1.6 K/uL (0.8-4.8); LYMPHOCYTES % (AUTO) 29.8 % (20.0-44.0); MEAN CORPUSCULAR HGB CONC 33 g/dl (31.0-36.0); MEAN CORPUSCULAR VOLUME 83 fL (80-96); MONOCYTES # (AUTO) 0.5 K/uL (0.1-1.30); MONOCYTES % (AUTO) 8.3 % (2.0-12.0); NEUTROPHILS # (AUTO) 3.1 K/uL (1.8-8.9); NEUTROPHILS % (AUTO) 57.4 % (43.0-81.0); PLATELET COUNT (AUTO) 151 K/uL (150-450); RED BLOOD CELL COUNT(AUTO) 4.75 MIL/uL (4.5-6.0); WHITE BLOOD COUNT (AUTO) 5.5 K/uL (4.3-11.0)
[2022-11-14 03:40] LABS: CARBON DIOXIDE 27 mmol/L (21-32); CHLORIDE 106 mmol/L (98-107); CREATININE 0.8 mg/dL (0.6-1.3); GLUCOSE 110 mg/dL (74-106); POTASSIUM 3.5 mmol/L (3.5-5.1); SODIUM SERUM 142 mmol/L (136-145); UREA NITROGEN, BLOOD 11 mg/dL (7-18)
[2022-11-14] MEDS ORDERED: PRED20TA PO (04:56)
[2022-11-14] MEDS ORDERED: predniSONE 20 MG TABLET ONE (04:59)
[2022-11-14] MEDS ORDERED: predniSONE 20 MG TABLET PO ONE (05:00)
[2022-11-14 05:12] VITALS: BP 113/85
== END 2022-11-14 05:12 | disposition home or self-care (01) ==
LOC: ER 02:57
DX: J45.901 Unspecified asthma with (acute) exacerbation (principal); K21.9 Gastro-esophageal reflux disease without esophagitis; Z79.899 Other long term (current) drug therapy; Z98.890 Other specified postprocedural states; Z88.0 Allergy status to penicillin; Z88.1 Allergy status to other antibiotic agents
CPT/HCPCS: 99285; 71045; 93005; 85025; 80048; 36415; 84484; 94644; J7512

== ENCOUNTER 2022-12-03 03:54 | Emergency (ER) | payer BC, OTHER ==
[~2022-12-03] VITALS: Ht 182.9 cm; Wt 81.6 kg
[~2022-12-03 03:54] MED LIST changes: +PRED20TA PO
--- NOTE | 2022-12-03 04:20 | NUR ---
SEEN BY DR CHING AT BEDSIDE
--- NOTE | 2022-12-03 04:20 | NUR ---
WOKE UP 3AM WITH SOB AND . PT USE HHI BUT NO RELIEF. FEELS LIKE LUNGS NOT EXPANDING WELL. PATIENT IS AOX4. ABLE TO MAKE NEEDS KNOWN. PLACED COMFORTABLY IN BED. VITALS CHECKED.
--- NOTE | 2022-12-03 04:29 | NUR ---
XRAY DONE AT BEDSIDE
[2022-12-03] MEDS ORDERED: IPRATROPIUM NEB FS 0.5 MG/2.5 ML AMPUL.NEB NEB ONE (04:30)
[2022-12-03] MEDS ORDERED: ALBUTEROL FS 2.5 MG/3 ML VIAL.NEB NEB ONE (04:30)
[2022-12-03] MEDS ORDERED: IPRATROPIUM NEB FS 0.5 MG/2.5 ML AMPUL.NEB ONE (04:38)
[2022-12-03] MEDS ORDERED: ALBUTEROL FS 2.5 MG/3 ML VIAL.NEB ONE (04:38)
[2022-12-03 05:03] LABS: BASOPHILS % (AUTO) 0.3 % (0.0-2.0); EOSINOPHILS % (AUTO) 1.5 % (0.0-6.0); HEMATOCRIT 40 % (39-51); HEMOGLOBIN 12.9 g/dL (13.5-17.5); LYMPHOCYTES # (AUTO) 1.3 K/uL (0.8-4.8); LYMPHOCYTES % (AUTO) 17.3 % (20.0-44.0); MEAN CORPUSCULAR HGB CONC 33 g/dl (31.0-36.0); MEAN CORPUSCULAR VOLUME 84 fL (80-96); MONOCYTES # (AUTO) 0.5 K/uL (0.1-1.30); MONOCYTES % (AUTO) 6.3 % (2.0-12.0); NEUTROPHILS # (AUTO) 5.6 K/uL (1.8-8.9); NEUTROPHILS % (AUTO) 74.6 % (43.0-81.0); PLATELET COUNT (AUTO) 174 K/uL (150-450); RED BLOOD CELL COUNT(AUTO) 4.73 MIL/uL (4.5-6.0); WHITE BLOOD COUNT (AUTO) 7.5 K/uL (4.3-11.0)
[2022-12-03 05:08] LABS: CALCIUM, SERUM 8.7 mg/dL (8.5-10.1); CARBON DIOXIDE 26 mmol/L (21-32); CHLORIDE 107 mmol/L (98-107); CREATININE 0.9 mg/dL (0.6-1.3); GLUCOSE 128 mg/dL (74-106); SODIUM SERUM 139 mmol/L (136-145); UREA NITROGEN, BLOOD 7 mg/dL (7-18)
[2022-12-03 06:51] VITALS: BP 110/79
--- NOTE | 2022-12-03 06:51 | NUR ---
Patient discharged to home in stable condition. Written and verbal after care instructions given. Patient verbalizes understanding of instruction.
== END 2022-12-03 06:51 | disposition home or self-care (01) ==
LOC: ER 03:57
DX: J45.909 Unspecified asthma, uncomplicated (principal); K21.9 Gastro-esophageal reflux disease without esophagitis; Z79.899 Other long term (current) drug therapy; Z88.0 Allergy status to penicillin; Z88.1 Allergy status to other antibiotic agents
CPT/HCPCS: 36415; 71045-TC; 80048-TC; 84484-TC; 85025-TC

== ENCOUNTER 2023-08-23 11:27 | Inpatient (IN) | payer BC, OTHER ==
[~2023-08-23] VITALS: Ht 182.9 cm; Wt 82.1 kg
[~2023-08-23 11:27] MED LIST changes: +OMEP20CA15 PO
[2023-08-23 11:48] LABS: BASOPHILS % (AUTO) 0.7 % (0.0-2.0); EOSINOPHILS # (AUTO) 0.2 K/uL (0.0-0.7); EOSINOPHILS % (AUTO) 3.5 % (0.0-6.0); HEMATOCRIT 41 % (39-51); HEMOGLOBIN 13.4 g/dL (13.5-17.5); LYMPHOCYTES # (AUTO) 1.4 K/uL (0.8-4.8); LYMPHOCYTES % (AUTO) 24.5 % (20.0-44.0); MEAN CORPUSCULAR HEMOGLOBIN 28 PG (26.0-33.0); MEAN CORPUSCULAR HGB CONC 33 g/dl (31.0-36.0); MEAN CORPUSCULAR VOLUME 84 fL (80-96); MONOCYTES # (AUTO) 0.4 K/uL (0.1-1.30); NEUTROPHILS # (AUTO) 3.6 K/uL (1.8-8.9); NEUTROPHILS % (AUTO) 63.3 % (43.0-81.0); PLATELET COUNT (AUTO) 157 K/uL (150-450); RED BLOOD CELL COUNT(AUTO) 4.85 MIL/uL (4.5-6.0); RED CELL DISTRIBUTION WIDTH 14.6 % (11.5-15.0); WHITE BLOOD COUNT (AUTO) 5.6 K/uL (4.3-11.0)
[2023-08-23 11:57] LABS: CARBON DIOXIDE 26 mmol/L (21-32); CHLORIDE 106 mmol/L (98-107); GLUCOSE 99 mg/dL (74-106); SODIUM SERUM 140 mmol/L (136-145); UREA NITROGEN, BLOOD 7 mg/dL (7-18)
[2023-08-23 12:10] LABS: ALANINE AMINOTRANSFERASE 24 U/L (12-78); ALBUMIN 3.6 g/dL (3.4-5.0); ASPARTATE AMINOTRANSFERASE 20 U/L (15-37); BILIRUBIN,DIRECT 0.2 mg/dL (0.0-0.2); BILIRUBIN,TOTAL 0.9 mg/dL (0.2-1.0); NT-PRO BNP 48 pg/mL (0-125); TOTAL PROTEIN, SERUM 6.7 g/dL (6.4-8.2)
[2023-08-23] MEDS ORDERED: IOHEXOL-350 100 ML VIAL IV ONE (12:24)
[2023-08-23] MEDS ORDERED: IV NS 0.9% 250 ML IV ONE (12:24)
[2023-08-23 12:29] LABS: ALKALINE PHOSPHATASE 90 U/L (46-116)
[2023-08-23] MEDS ORDERED: ATOR10TA PO (13:24)
[2023-08-23] MEDS ORDERED: ALBU18HF2 IH (13:24)
[2023-08-23] MEDS ORDERED: CETI-90 PO (13:24)
[2023-08-23] MEDS ORDERED: ASCO100058 PO (13:24)
[2023-08-23] MEDS ORDERED: ASPI-1420 PO (13:24)
[2023-08-23] MEDS ORDERED: FLUT12AE3 IH (13:24)
[2023-08-23] MEDS ORDERED: OMEP40CA21 PO (13:24)
[2023-08-23] MEDS ORDERED: TAMS-12 PO (13:24)
[2023-08-23] MEDS ORDERED: MONT10TA22 PO (13:24)
[2023-08-23] MEDS ORDERED: ASPIRIN 325 MG TABLET ONE (14:27)
[2023-08-23] MEDS: ASPIRIN 325 MG TABLET PO ONE (14:31)
[2023-08-23] MEDS ORDERED: ONDANSETRON HCL/PF 4 MG/2 ML VIAL IVP PRN (15:00)
[2023-08-23] MEDS ORDERED: Z GUARD REMEDY 4 OZ OINT TP PRN (15:00)
[2023-08-23] MEDS ORDERED: ZOLPIDEM TARTRATE 5 MG TABLET PO PRN (15:00)
[2023-08-23] MEDS ORDERED: MAG HYDROX/AL HYDROX/SIMETH 30 ML UDC PO PRN (15:00)
[2023-08-23] MEDS ORDERED: ACETAMINOPHEN 325 MG TABLET PO PRN (15:00)
[2023-08-23] MEDS ORDERED: MAGNESIUM HYDROXIDE 30 ML UDC PO PRN (15:00)
[2023-08-23] MEDS ORDERED: ALBUTEROL FS 2.5 MG/0.5 ML VIAL.NEB NEB PRN (16:00)
[2023-08-23 16:07] VITALS: BP 125/83; TEMP 97.5; O2SAT 97
[2023-08-23] MEDS ORDERED: NITROGLYCERIN 0.4 MG/TAB BOTTLE SL PRN (17:00)
[2023-08-23] MEDS: TAMSULOSIN 0.4 MG CAP.SR.24H PO SCH (17:58)
[2023-08-23] MEDS: MONTELUKAST SODIUM (10MG) 10 MG TABLET PO SCH (17:58)
[2023-08-23] MEDS: BUDESONIDE RESPULE INH 0.5 MG/2 ML AMPUL.NEB NEB SCH (19:30)
[2023-08-23 20:00] VITALS: BP 108/78; TEMP 97.7; O2SAT 97
[2023-08-23] MEDS: ATORVASTATIN 10 MG TABLET PO SCH (21:51)
[2023-08-24] VITALS: BP 107/67; TEMP 97.7; O2SAT 98
[2023-08-24 04:00] VITALS: BP 120/74; TEMP 97.5; O2SAT 97
[2023-08-24 06:39] LABS: BASOPHILS % (AUTO) 0.8 % (0.0-2.0); EOSINOPHILS # (AUTO) 0.2 K/uL (0.0-0.7); HEMATOCRIT 38 % (39-51); HEMOGLOBIN 12.5 g/dL (13.5-17.5); LYMPHOCYTES # (AUTO) 1.2 K/uL (0.8-4.8); LYMPHOCYTES % (AUTO) 21.3 % (20.0-44.0); MEAN CORPUSCULAR HEMOGLOBIN 28 PG (26.0-33.0); MEAN CORPUSCULAR HGB CONC 33 g/dl (31.0-36.0); MEAN CORPUSCULAR VOLUME 83 fL (80-96); MONOCYTES # (AUTO) 0.5 K/uL (0.1-1.30); MONOCYTES % (AUTO) 9.4 % (2.0-12.0); NEUTROPHILS # (AUTO) 3.7 K/uL (1.8-8.9); NEUTROPHILS % (AUTO) 64.5 % (43.0-81.0); PLATELET COUNT (AUTO) 143 K/uL (150-450); RED BLOOD CELL COUNT(AUTO) 4.53 MIL/uL (4.5-6.0); RED CELL DISTRIBUTION WIDTH 14.3 % (11.5-15.0); WHITE BLOOD COUNT (AUTO) 5.7 K/uL (4.3-11.0)
[2023-08-24 06:56] LABS: CALCIUM, SERUM 8.4 mg/dL (8.5-10.1); MAGNESIUM 2.2 mg/dL (1.8-2.4); PHOSPHORUS 5.5 mg/dL (2.5-4.9); POTASSIUM 3.5 mmol/L (3.5-5.1)
[2023-08-24 07:42] VITALS: O2SAT 99
[2023-08-24 08:00] VITALS: BP 115/69; TEMP 97.9; O2SAT 97
[2023-08-24] MEDS: ASPIRIN EC 81 MG TABLET.DR PO SCH (08:14)
[2023-08-24] MEDS: ASCORBIC ACID 500 MG TABLET PO SCH (08:14)
[2023-08-24] MEDS: PANTOPRAZOLE 40 MG TABLET.DR PO SCH (08:14)
== END 2023-08-24 12:48 | disposition left against medical advice (07) | DRG 392 ==
LOC: ER 11:27 → TELE 14:20
PROVIDERS: ADMIT Nurse Practitioner Acute Care; ATTEND Nurse Practitioner Acute Care
DX: K21.9 Gastro-esophageal reflux disease without esophagitis (principal); J45.909 Unspecified asthma, uncomplicated; E78.00 Pure hypercholesterolemia, unspecified; N40.0 Benign prostatic hyperplasia without lower urinary tract symptoms; Z86.73 Personal history of transient ischemic attack (TIA), and cerebral infarction without residual deficits; Z86.718 Personal history of other venous thrombosis and embolism; Z79.890 Hormone replacement therapy; Z87.19 Personal history of other diseases of the digestive system; Z88.0 Allergy status to penicillin; Z88.6 Allergy status to analgesic agent; Z79.51 Long term (current) use of inhaled steroids; E78.5 Hyperlipidemia, unspecified; Z98.890 Other specified postprocedural states; Z79.82 Long term (current) use of aspirin; Z79.899 Other long term (current) drug therapy
CPT/HCPCS: 36415; 71045-TC; 80048-TC; 80061-TC; 80076-TC; 83735-TC; 83880; 84100-TC; 84484-TC; 85025-TC; 93307-TC; 93970-TC; 94799-TC; G0378; J7050; Q9967

== ENCOUNTER 2024-10-18 21:17 | Emergency (ER) | payer BC, MEDICAID ==
[~2024-10-18] VITALS: Ht 182.9 cm; Wt 81.6 kg
[~2024-10-18 21:17] MED LIST changes: +ALBU18HF2 IH; -ALBU18HF2 INH; +ASCO100058 PO; +ASPI-1420 PO; +ATOR10TA PO; +CETI-90 PO; +FLUT12AE3 IH; -FLUT1BLS IH; -MOME13HF INH; +MONT10TA22 PO; -OMEP20CA15 PO; +OMEP40CA21 PO; -PRED20TA PO; +TAMS-12 PO
[2024-10-18 21:52] LABS: BASOPHILS # (AUTO) 0.1 K/uL (0.0-0.2); BASOPHILS % (AUTO) 1.1 % (0.0-2.0); EOSINOPHILS # (AUTO) 0.4 K/uL (0.0-0.7); EOSINOPHILS % (AUTO) 5.9 % (0.0-6.0); HEMATOCRIT 41 % (39-51); HEMOGLOBIN 13.5 g/dL (13.5-17.5); LYMPHOCYTES # (AUTO) 1.2 K/uL (0.8-4.8); MEAN CORPUSCULAR HEMOGLOBIN 28 PG (26.0-33.0); MEAN CORPUSCULAR HGB CONC 33 g/dl (31.0-36.0); MEAN CORPUSCULAR VOLUME 84 fL (80-96); MONOCYTES # (AUTO) 0.4 K/uL (0.1-1.30); MONOCYTES % (AUTO) 6.8 % (2.0-12.0); NEUTROPHILS # (AUTO) 4.4 K/uL (1.8-8.9); NEUTROPHILS % (AUTO) 67.2 % (43.0-81.0); PLATELET COUNT (AUTO) 160 K/uL (150-450); RED BLOOD CELL COUNT(AUTO) 4.81 MIL/uL (4.5-6.0); RED CELL DISTRIBUTION WIDTH 14.6 % (11.5-15.0); WHITE BLOOD COUNT (AUTO) 6.6 K/uL (4.3-11.0)
[2024-10-18 22:00] LABS: CALCIUM, SERUM 8.7 mg/dL (8.5-10.1); CARBON DIOXIDE 29 mmol/L (21-32); CHLORIDE 108 mmol/L (98-107); GLUCOSE 129 mg/dL (74-106); POTASSIUM 3.7 mmol/L (3.5-5.1); SODIUM SERUM 143 mmol/L (136-145); UREA NITROGEN, BLOOD 11 mg/dL (7-18)
[2024-10-18 22:13] LABS: NT-PRO BNP 24 pg/mL (0-125)
[2024-10-19 01:06] VITALS: BP 101/64; TEMP 98.1; O2SAT 95
== END 2024-10-19 01:06 | disposition home or self-care (01) ==
LOC: ER 21:45
DX: R07.89 Other chest pain (principal); R06.02 Shortness of breath; J44.9 Chronic obstructive pulmonary disease, unspecified; Z79.51 Long term (current) use of inhaled steroids; Z79.82 Long term (current) use of aspirin; Z79.899 Other long term (current) drug therapy; Z88.0 Allergy status to penicillin; Z88.6 Allergy status to analgesic agent
CPT/HCPCS: 36415; 71045-TC; 80048-TC; 83880; 84484-TC; 85025-TC